=== PATIENT | male | born 1960 | race Caucasian/White ===

== ENCOUNTER 2018-04-11 08:19 | Emergency (ER) | payer MEDICAID ==
--- NOTE | 2018-04-11 08:46 | Emergency Department Record ---
History of Present Illness - General Chief Complaint: Cough Stated Complaint: STORM,COUGH,H/A Time Seen by Provider: 04/11/18 08:37 Source: Patient Mode of Arrival: Ambulatory Limitations: No limitations - History of Present Illness Initial Comments: The patient is here due to a 4 day hx of cough, congestion, frontal VIEYRA, mild ST and body aches. He denies any sputum production, fever, chills, or vomiting. The patient does have a hx of COPD and was around his grandchildren who were ill recently. MD Complaint: Cough, Nasal congestion, Rhinorrhea, Sore throat Onset/Timin -: Days(s) - Related Data Home Medications Medication Instructions Recorded Confirmed Last Taken Aspirin 81 mg PO DAILY 04/11/18 04/11/18 Unknown Cetirizine HCl [All Day Allergy 10 mg PO DAILY 04/11/18 04/11/18 Unknown Relief] Cholecalciferol (Vitamin D3) 2,000 unit PO DAILY 04/11/18 04/11/18 Unknown [Vitamin D3] Duloxetine HCl [Cymbalta] 60 mg PO DAILY 04/11/18 04/11/18 Unknown Tamsulosin HCl [Flomax] 0.4 mg PO DAILY 04/11/18 04/11/18 Unknown Varenicline Tartrate [Chantix] 1 mg PO DAILY 04/11/18 04/11/18 Unknown Allergies Allergy/AdvReac Type Severity Reaction Status Date / Time Penicillins Allergy HIVES Verified 04/11/18 09:14 Travel Screening - Travel/Exposure Within Last 30 Days Have you traveled within the last 30 days?: No Review of Systems Constitutional: Reports: Chills, Malaise. Denies: Fever Eyes: Denies: Eye discharge ENT: Reports: Congestion Respiratory: Reports: Cough. Denies: Dyspnea Cardiovascular: Denies: Arrhythmia Endocrine: Denies: Fatigue Gastrointestinal: Denies: Nausea Genitourinary: Denies: Dysuria Musculoskeletal: Denies: Arthralgia Skin: Denies: Bruising Past Medical History - SOCIAL HISTORY Smoking Status: Former smoker Alcohol Use: Occasional - RESPIRATORY Hx Respiratory Disorders: Yes Hx COPD: Yes - CARDIOVASCULAR Hx Cardio Disorders: Yes Comment:: AAA - NEURO Hx Neuro Disorders: No - GI Hx GI Disorders: No - Hx Genitourinary Disorders: Yes Hx Bladder Problem: Yes (Self Caths) Hx Prostate Problems: Yes (BPH) - ENDOCRINE Hx Endocrine Disorders: No - MUSCULOSKELETAL Hx Musculoskeletal Disorders: No - PSYCH Hx Psych Problems: No - HEMATOLOGY/ONCOLOGY Hx Hematology/Oncology Disorders: No Family Medical History Any Significant Family History?: Yes Hx Diabetes: Father Hx Heart Disease: Father Physical Exam - General General Appearance: Alert, Oriented x3, Cooperative, No acute distress - Head Head exam: Atraumatic, Normocephalic, Normal inspection - Eye Eye exam: Normal appearance, PERRL, EOMI - ENT ENT exam: TM's normal bilaterally Nasal Exam: Normal inspection. negative: Active bleeding, Discharge, Sinus tenderness Throat exam: Tonsillar erythema. negative: Normal inspection, Tonsillomegaly, Tonsillar exudate - Neck Neck exam: Normal inspection, Full ROM. negative: Lymphadenopathy, Tenderness - Respiratory Respiratory exam: Normal lung sounds bilaterally. negative: Respiratory distress - Cardiovascular Cardiovascular Exam: Regular rate, Normal rhythm, Normal heart sounds - GI/Abdominal GI/Abdominal exam: Soft, Normal bowel sounds. negative: Tenderness - Extremities Extremities exam: Normal inspection, Full ROM, Normal capillary refill. negative: Tenderness - Neurological Neurological exam: Alert, Normal gait. negative: Abnormal gait, Motor sensory deficit Course Vital Signs 04/11/18 08:23 Temperature 97.2 F L Pulse Rate 61 Respiratory 20 Rate Blood Pressure 133/79 Pulse Ox 98 - Reevaluation(s) Reevaluation #1: The patient is doing well and I did discuss the neg lab tests and neg CXR. I also did discuss the mildly elevated Cr with the patient and he did state he only has one kidney so due to the fact we have no old records on him I did recommend further evaluation this next week with his PCP for it. 04/11/18 10:15 Medical Decision Making - Data Complexity MDM Data: Labs Ordered and/or Reviewed, X-Ray Ordered and/or Reviewed - Lab Data Result diagrams: 04/11/18 08:50 04/11/18 08:50 - Radiology Data Radiology results: Report reviewed (CXR; Neg.) Disposition Disposition: Discharge Clinical Impression: URI, acute Disposition: Home, Self-Care Condition: (2) Stable Instructions: Cold Symptoms (ED) Additional Instructions: Please continue your OTC cough and cold medicines and use Tylenol if needed. Please see your family doctor this week for recheck and to repeat your kidney function tests. Return to the ER for any worsening symptoms. Forms: Patient Portal Access Time of Disposition: 10:17 Quality - Quality Measures Quality Measures: N/A - Blood Pressure Screening View Details: Yes Does Patient Have Any of the Following: No Blood Pressure Classification: Pre-Hypertensive BP Reading Systolic Measurement: 133 Diastolic Measurement: 79 Screening for High Blood Pressure: < Pre-Hypertensive BP, F/U Documented > [ [id number]] Pre-Hypertensive Follow-up Interventions: Referral to alternative/primary care provider.
[2018-04-11 08:59] LABS: BASO % 0.6 % (0-6); EOS % 2.2 % (0-6); GRAN % 65.1 % (47-80); HEMATOCRIT 49.1 % (42.0-52.0); HEMOGLOBIN 16.3 gm/dl (14.0-18.0); LYMPH % 19.4 % (16-45); MEAN CELL VOLUME 88.2 fl (81-97); MEAN CORPUSCULAR HEMOGLOBIN 29.3 pg (27-33); MEAN CORPUSCULAR HGB CONC 33.2 g/dl (32-36); MEAN PLATELET VOLUME 9.1 fl (7.4-10.4); MONO % 12.7 % (0-9); PLATELET COUNT 262 K/uL (130-400); RED BLOOD COUNT 5.57 M/uL (4.40-5.70); RED CELL DISTRIBUTION WIDTH 14.1 % (11.5-14.5); WHITE BLOOD COUNT W/O DIFF 11.2 K/uL (4.2-12.2)
[2018-04-11 09:16] LABS: INFLUENZA A NEGATIVE (NEGATIVE); INFLUENZA B NEGATIVE (NEGATIVE)
[2018-04-11 09:29] LABS: CREATININE 1.5 mg/dL (0.7-1.2)
[2018-04-11 09:35] LABS: C-REACTIVE PROTEIN 0.47 mg/dL (<0.5)
--- NOTE | 2018-04-12 18:36 | RADIOLOGY REPORT ---
EXAM: CHEST 2 VIEWS HISTORY: COUGH AND COLD FOR FIVE DAYS. TECHNIQUE: Two views of the chest. COMPARISON: None. FINDINGS: Cardiac silhouette within normal size limits. Mild tortuosity of the thoracic aorta. Pulmonary vasculature is nondilated. No focal pulmonary consolidation. No pleural effusion or pneumothorax. IMPRESSION: NO ACUTE LUNG FINDINGS. JOB NUMBER: [id number] MTDD
== END 2018-04-11 10:24 | disposition home or self-care (01) ==
LOC: ER 08:19
DX: J06.9 Acute upper respiratory infection, unspecified (principal); R05 Cough; R51 Headache; J02.9 Acute pharyngitis, unspecified; I71.4 Abdominal aortic aneurysm, without rupture; R79.89 Other specified abnormal findings of blood chemistry; Z87.891 Personal history of nicotine dependence
CPT/HCPCS: 71046; 80048; 84145; 85025; 86140; 87400; 99283; 99284

== ENCOUNTER 2018-10-16 17:44 | Observation (INO) | payer BC, MEDICAID ==
--- NOTE | 2018-10-16 18:01 | Emergency Department Record ---
History of Present Illness <Jewel Lucas - Last Filed: 10/16/18 17:50> - General Source: Patient Mode of Arrival: EMS Limitations: No limitations - History of Present Illness Initial Comments: 58 yo male presents to ED for evaluation of an injury to the head following fall into a picnic table. Patient's SO report that the patient was smoking marijuana this evening when he began to feel ill, thought he was going to vomit, and fell over face first into a picnic table outdoors. Patient denies LOC, denies use a nticoagulation medications. Patient denies pain to the head/neck, denies numbness, tingling, or extremity weakness on examination. Patient is s/p AAA repair in May of this year. SO reports that the patient's beta-marilyn was increased 2-3 weeks as well for elevated blood pressure. MD Complaint: Fall Onset/Timin -: Minutes(s) Fall From: Standing When Fall Occurred: Just prior to arrival Fall Witnessed: Yes, by family Place Fall Occurred: Home Loss of Consciousness: None Prolonged Down Time?: No Symptoms Prior to Fall: Other (Nausea) Context: Other (marijauna use) Associated Symptoms: Denies - [place] Coma Scale Eye Response: (4) Open spontaneously Motor Response: (6) Obeys commands Verbal Response: (5) Oriented [place] Total: 15 <MARIUM LUNSFORD - Last Filed: 10/16/18 22:12> - General Chief Complaint: Fall Injury Stated Complaint: FALL Time Seen by Provider: 10/16/18 17:50 - Related Data Home Medications Medication Instructions Recorded Confirmed Last Taken Atorvastatin Calcium 40 mg PO DAILY 10/16/18 10/16/18 1 Day Ago ~10/15/18 Gabapentin [Neurontin] 300 mg PO TID 10/16/18 10/16/18 1 Day Ago ~10/15/18 Magnesium Oxide 400 mg PO BID 10/16/18 10/16/18 1 Day Ago ~10/15/18 Metoprolol Tartrate 25 mg PO BID 10/16/18 10/16/18 1 Day Ago ~10/15/18 Oxycodone HCl/Acetaminophen 1 tab PO Q6H PRN 10/16/18 10/16/18 1 Day Ago [Oxycodone/Acetaminophen 5mg/325mg] ~10/15/18 Trazodone HCl 50 mg PO QHS 10/16/18 10/16/18 1 Day Ago ~10/15/18 Venlafaxine HCl [Venlafaxine HCl 37.5 mg PO DAILY 10/16/18 10/16/18 1 Day Ago ER] ~10/15/18 Allergies Allergy/AdvReac Type Severity Reaction Status Date / Time Penicillins Allergy HIVES Verified 10/16/18 17:58 Sulfa (Sulfonamide Allergy VOMITING Verified 10/16/18 17:58 Antibiotics) Review of Systems Constitutional: Denies: Chills, Fever, Malaise, Night sweats Eyes: Denies: Eye discharge, Eye pain ENT: Denies: Congestion, Ear pain, Epistaxis Respiratory: Denies: Cough, Dyspnea Cardiovascular: Denies: Chest pain, Dyspnea on exertion Endocrine: Denies: Fatigue, Heat or cold intolerance Gastrointestinal: Reports: Nausea. Denies: Abdominal pain, Vomiting Genitourinary: Denies: Incontinence, Retention Musculoskeletal: Denies: Arthralgia, Back pain Skin: Reports: Other (Forehead laceration). Denies: Bruising, Change in color Neurological: Denies: Numbness, Paresthesias, Tingling, Tremors Psychiatric: Denies: Anxiety, Auditory hallucinations <MARIUM LUNSFORD - Last Filed: 10/16/18 22:12> Past Medical History - SOCIAL HISTORY Smoking Status: Former smoker - RESPIRATORY Hx Respiratory Disorders: Yes Hx COPD: Yes - CARDIOVASCULAR Hx Cardio Disorders: Yes Comment:: AAA - NEURO Hx Neuro Disorders: No - GI Hx GI Disorders: No - Hx Genitourinary Disorders: Yes Hx Bladder Problem: Yes (Self Caths) Hx Prostate Problems: Yes (BPH) - ENDOCRINE Hx Endocrine Disorders: No - MUSCULOSKELETAL Hx Musculoskeletal Disorders: No - PSYCH Hx Psych Problems: No - HEMATOLOGY/ONCOLOGY Hx Hematology/Oncology Disorders: No <Jewel Lucas - Last Filed: 10/16/18 17:50> Family Medical History Hx Diabetes: Father Hx Heart Disease: Father <Jewel Lucas - Last Filed: 10/16/18 17:50> Physical Exam - General General Appearance: Alert, Oriented x3, Cooperative, Mild distress Limitations: No limitations - Head Head exam: Other (3.5 cm linear forehead laceration in the midlind perpendicular to estuardo's lines) Head exam detail: Abrasion, Laceration. negative: Diaz's sign, General tenderness, Hematoma - Eye Eye exam: Normal appearance. negative: Conjunctival injection, Periorbital swelling, Periorbital tenderness, Scleral icterus - ENT Ear exam: negative: Auricular hematoma, Auricular trauma Nasal Exam: negative: Active bleeding, Discharge, Dried blood, Foreign body Mouth exam: negative: Drooling, Laceration, Muffled voice, Tongue elevation - Neck Neck exam: Normal inspection. negative: Meningismus, Tenderness - Respiratory Respiratory exam: Normal lung sounds bilaterally. negative: Respiratory distress, Rhonchi, Stridor, Wheezes - Cardiovascular Cardiovascular Exam: Normal rhythm, Normal heart sounds, Bradycardia - GI/Abdominal GI/Abdominal exam: Soft, Other (Well-healed midline scar present in the midline). negative: Rebound, Rigid, Tenderness - Rectal Rectal exam: Deferred - exam: Deferred - Extremities Extremities exam: Normal inspection. negative: Pedal edema, Tenderness - Back Back exam: Denies: CVA tenderness (R), CVA tenderness (L) - Neurological Neurological exam: Alert, Normal gait, Oriented X3 - Psychiatric Psychiatric exam: Normal affect, Normal mood - Skin Skin exam: Normal color. negative: Abrasion Type of lesion: negative: abrasion <MARIUM LUNSFORD - Last Filed: 10/16/18 22:12> Course Vital Signs 10/16/18 17:45 Pulse Rate 48 L Respiratory 18 Rate Blood Pressure 89/68 Pulse Ox 98 - Reevaluation(s) Reevaluation #1: 10/16/18 18:50 EKG: Sinus Bradycardia 47 LAD, normal intervals No acute ST-T wave changes Laboratory studies were reviewed and are grossly unremarkable for an acute process except for the following: WBC 14.9 Hgb 12.4 BUN 27 Creatinine 2.0 (baseline 1.5) CT Brain: No acute intracranial process CT Cervical Spine: No acute fracture or mal-alignment Procedure Note: 3.5 cm laceration to the forehead, bleeding controlled. Wound was cleaned and prepped in sterile fashion, no residual FB identified on examination. Wound was anesthetized with 2.0 mL of 1% Lidocaine with epinephrine with good anesthesia, and the laceration was repaired with 4-0 Prolene (#8) sutures in interrupted fashion. Patient tolerated the procedure well without complications. IVFs are infusing, will admit for symptomatic bradycardia likely secondary to increased beta marilyn dosage 3 weeks ago. Reevaluation #2: 10/16/18 19:02 Case was discussed with Dr. Logan, will accept admission at this time. <MARIUM LUNSFORD - Last Filed: 10/16/18 22:12> Medical Decision Making - Lab Data Result diagrams: 10/16/18 18:17 10/16/18 18:17 <MARIUM LUNSFORD - Last Filed: 10/16/18 22:12> Disposition <Jewel Lucas A - Last Filed: 10/16/18 17:50> Disposition: Admit Decision to Admit: Admit from ER Decision to Admit Date: 10/16/18 Decision to Admit Time: 19:03 Time of Disposition: 18:54 <MARIUM LUNSFORD - Last Filed: 10/16/18 22:12> Clinical Impression: Symptomatic bradycardia, KEE (acute kidney injury) Forehead laceration Qualifiers: Encounter type: initial encounter Qualified Code(s): S01.81XA - Laceration without foreign body of other part of head, initial encounter Fall Qualifiers: Encounter type: initial encounter Qualified Code(s): W19.XXXA - Unspecified fall, initial encounter Disposition: Still a Patient at [facility] Condition: (2) Stable Quality - Blood Pressure Screening Does Patient Have Any of the Following: No <Jewel Lucas - Last Filed: 10/16/18 17:50> - Quality Measures Quality Measures: N/A - Blood Pressure Screening Does Patient Have Any of the Following: Active Dx of HTN Blood Pressure Classification: Normal BP Reading Systolic Measurement: 89 Diastolic Measurement: 68 Screening for High Blood Pressure: Patient Exclusion, Hx of HTN [G9744] <MARIUM LUNSFORD - Last Filed: 10/16/18 22:12>
[2018-10-16 18:28] LABS: ABSOLUTE NEUTROPHIL COUNT 11.94; HEMATOCRIT 40.5 % (42.0-52.0); HEMOGLOBIN 12.4 gm/dl (14.0-18.0); MEAN CORPUSCULAR HGB CONC 30.6 g/dl (32-36); MEAN PLATELET VOLUME 9.1 fl (7.4-10.4); PLATELET COUNT 350 K/uL (130-400); RED BLOOD COUNT 5.19 M/uL (4.40-5.70); RED CELL DISTRIBUTION WIDTH 16.6 % (11.5-14.5); WHITE BLOOD COUNT W/O DIFF 14.9 K/uL (4.2-12.2)
[2018-10-16 18:31] LABS: MEAN CORPUSCULAR HEMOGLOBIN 23.8 pg (27-33)
[2018-10-16 18:37] LABS: PLATELET ESTIMATE NORMAL (NORMAL)
[2018-10-16 18:39] LABS: INR 1.1; PARTIAL THROMBOPLASTIN TIME 23.6 SECONDS (24.5-39.1)
[2018-10-16] MEDS ORDERED: 0.9 % SODIUM CHLORIDE 1000ML 1,000 ML IV SCH (19:00)
[2018-10-16] MEDS ORDERED: 0.9 % SODIUM CHLORIDE 1000ML 1,000 ML IV PRN (20:55)
[2018-10-16] MEDS ORDERED: OXYCODONE HCL/APAP 5MG/325MG TABLET PO PRN (20:55)
[2018-10-16] MEDS ORDERED: TRAZODONE 50 MG TABLET PO SCH (22:00)
[2018-10-17] MEDS: GABAPENTIN 300 MG CAPSULE PO SCH ×2 (01:15→09:35)
[2018-10-17 06:30] LABS: URINE APPEARANCE SL CLOUDY; URINE BILIRUBIN NEGATIVE (NEGATIVE); URINE BLOOD SMALL (NEGATIVE); URINE COLOR YELLOW; URINE GLUCOSE (UA) NEGATIVE (NEGATIVE); URINE KETONE NEGATIVE (NEGATIVE); URINE LEUKOCYTE ESTERASE LARGE (NEGATIVE); URINE NITRITE NEGATIVE (NEGATIVE); URINE PROTEIN TRACE (NEGATIVE); URINE UROBILINOGEN 0.2 E.U./dL (0.20 - 1.00)
[2018-10-17 06:34] LABS: URINE BACTERIA 1+; URINE EPITHELIAL CELLS 0 - 2 (FEW); URINE WBC 21 - 35 (0-2/hpf)
[2018-10-17 08:20] LABS: CREATININE 1.7 mg/dL (0.7-1.2)
--- NOTE | 2018-10-17 08:27 | History & Physical ---
History of Present Illness - Date of Service Date of Service for History & Physical: 10/17/18 - History of Present Illness Admitting Diagnosis: Symptomatic Bradycardia. KEE. Fall with forehead laceration. Marijuana ingestion History of Present Illness: Mr. Escobar is a 58 y/o male here after experiencing a fall injury yesterday. The patient says that he was at home and he tried some medical marijuana which he got from a family member. He says that he began to feel really 'mellow and lightheaded' after smoking it causing him to fall forward and hit his head. He say she has not smoked cannabis in about 30 years so it really hit him hard. His Linda who I spoke to on the phone also notes recent changes to his Metoprolol. She says that his primary care doctor has been changing his medication dose because his blood pressure was out of control. He has recently increased his dose of Metoprolol to 25mg twice daily. On arriving to [facility] ED the patient was noted to be bradycardic and hypotensive. He also had a laceration of the forehead requiring eight sutures. The patient is admitted for symptomatic bradycardia and acute on chronic kidney failure. ECG: sinus bradycardia, vent rate 47, no acute changes. BP 86/68, HR 48. RR 18, Sats 98% RA, T 97 CT head: negative for acute injury. Cervical spine: negative for acute injury/fracture. Travel Screening - Travel/Exposure Within Last 30 Days Have you traveled within the last 30 days?: No - Travel/Exposure Within Last Year Have you traveled outside the [place] in the last year?: No - Additonal Travel Details Have you been exposed to anyone with a communicable illness?: No - Travel Symptoms Symptom Screening: None Review of Systems Constitutional: Denies: Chills, Fever, Malaise, Night sweats Eyes: Denies: Eye discharge, Eye pain ENT: Denies: Congestion, Ear pain, Epistaxis Respiratory: Denies: Cough, Dyspnea Cardiovascular: Denies: Chest pain, Dyspnea on exertion Endocrine: Denies: Fatigue, Heat or cold intolerance Gastrointestinal: Reports: Nausea. Denies: Abdominal pain, Vomiting Genitourinary: Denies: Incontinence, Retention Musculoskeletal: Denies: Arthralgia, Back pain Skin: Reports: Other (Forehead laceration). Denies: Bruising, Change in color Neurological: Denies: Numbness, Paresthesias, Tingling, Tremors Psychiatric: Denies: Anxiety, Auditory hallucinations Past Medical History - SOCIAL HISTORY Smoking Status: Former smoker Alcohol Use: Rare Drug Use: Rare Drug Use Detail:: Marijuana - RESPIRATORY Hx Respiratory Disorders: Yes Hx COPD: Yes - CARDIOVASCULAR Hx Cardio Disorders: No Comment:: AAA - NEURO Hx Neuro Disorders: No - GI Hx GI Disorders: No - Hx Genitourinary Disorders: Yes Hx Bladder Problem: Yes (Self Caths) Hx Prostate Problems: Yes (BPH) - ENDOCRINE Hx Endocrine Disorders: No - MUSCULOSKELETAL Hx Musculoskeletal Disorders: No - PSYCH Hx Psych Problems: No - HEMATOLOGY/ONCOLOGY Hx Hematology/Oncology Disorders: No Family Medical History Any Significant Family History?: Yes Hx Diabetes: Father Hx Heart Disease: Father, Brother/Sister H&P Meds/Allergies - Allergies Allergies: Allergies Allergy/AdvReac Type Severity Reaction Status Date / Time Penicillins Allergy HIVES Verified 10/16/18 17:58 Sulfa (Sulfonamide Allergy VOMITING Verified 10/16/18 17:58 Antibiotics) - Home Medications Home Medications Medication Instructions Recorded Confirmed Last Taken Atorvastatin Calcium 40 mg PO DAILY 10/16/18 10/16/18 1 Day Ago ~10/15/18 Gabapentin [Neurontin] 300 mg PO TID 10/16/18 10/16/18 1 Day Ago ~10/15/18 Magnesium Oxide 400 mg PO BID 10/16/18 10/16/18 1 Day Ago ~10/15/18 Metoprolol Tartrate 25 mg PO BID 10/16/18 10/16/18 1 Day Ago ~10/15/18 Oxycodone HCl/Acetaminophen 1 tab PO Q6H PRN 10/16/18 10/16/18 1 Day Ago [Oxycodone/Acetaminophen 5mg/325mg] ~10/15/18 Trazodone HCl 50 mg PO QHS 10/16/18 10/16/18 1 Day Ago ~10/15/18 Venlafaxine HCl [Venlafaxine HCl 37.5 mg PO DAILY 10/16/18 10/16/18 1 Day Ago ER] ~10/15/18 - Active Medications Active Medications: Current Medications Aspirin (Aspirin Chewable) 81 mg PO DAILY [facility] Atorvastatin Calcium (Lipitor) 40 mg PO DAILY [facility] Gabapentin (Neurontin) 600 mg PO TID [facility] Last Admin: 10/17/18 01:15 Dose: Not Given Documented by: Sodium Chloride () 1,000 mls @ 0 mls/hr IV .Q0M JONY Sodium Chloride () 1,000 mls @ 100 mls/hr IV .Q10H PRN PRN Reason: LARGE VOLUME IV Last Admin: 10/16/18 21:09 Dose: 100 mls/hr Documented by: Oxycodone/Acetaminophen (Percocet 5-325 Mg Tablet) 1 udtab PO Q6H PRN PRN Reason: PAIN - MILD (1-4) Trazodone HCl (Desyrel) 50 mg PO QHS [facility] Last Admin: 10/17/18 01:15 Dose: Not Given Documented by: Venlafaxine HCl (Effexor Xr) 37.5 mg PO DAILY [facility] Physical Exam - Vital Signs Vital Signs: Vital Signs - Last 24 Hrs Temp Pulse Pulse Resp BP BP Pulse Ox 10/17/18 07:34 97.8 F 69 18 145/78 93 L 10/17/18 05:00 98.3 F 68 18 149/78 98 10/17/18 01:00 98.7 F 74 20 131/66 94 L 10/16/18 20:22 16 10/16/18 20:00 97.6 F 47 L 18 132/74 97 10/16/18 19:04 48 L 18 125/75 94 L 10/16/18 17:45 48 L 18 89/68 98 - General General Appearance: Alert, Oriented x3, Cooperative, Mild distress Limitations: No limitations - Head Head exam: Other (3.5 cm linear forehead laceration in the midlind perpendicular to estuardo's lines) Head exam detail: Abrasion, Laceration (over the right forehead). negative: Diaz's sign, General tenderness, Hematoma - Eye Eye exam: Normal appearance. negative: Conjunctival injection, Periorbital swelling, Periorbital tenderness, Scleral icterus - ENT Ear exam: negative: Auricular hematoma, Auricular trauma Nasal Exam: negative: Active bleeding, Discharge, Dried blood, Foreign body Mouth exam: negative: Drooling, Laceration, Muffled voice, Tongue elevation - Neck Neck exam: Normal inspection. negative: Meningismus, Tenderness - Respiratory Respiratory exam: Normal lung sounds bilaterally. negative: Respiratory distress, Rhonchi, Stridor, Wheezes - Cardiovascular Cardiovascular Exam: Regular rate, Normal rhythm, Normal heart sounds, Bradycardia Peripheral Pulses: 3+: Radial (R), Radial (L), Dorsalis Pedis (R), Dorsalis Pedis (L) - GI/Abdominal GI/Abdominal exam: Soft, Other (Well-healed midline scar present in the midline ). negative: Rebound, Rigid, Tenderness - Rectal Rectal exam: Deferred - exam: Deferred - Extremities Extremities exam: Normal inspection. negative: Pedal edema, Tenderness - Back Back exam: Denies: CVA tenderness (R), CVA tenderness (L) - Neurological Neurological exam: Alert, Normal gait, Oriented X3 - Psychiatric Psychiatric exam: Normal affect, Normal mood - Skin Skin exam: Normal color. negative: Abrasion Type of lesion: negative: abrasion Results - Labs Result Diagrams: 10/16/18 18:17 10/17/18 08:02 Labs Last 24 Hours: Laboratory Results - last 24 hr 10/16/18 10/16/18 10/16/18 18:17 18:17 18:17 WBC 14.9 H RBC 5.19 Hgb 12.4 L Hct 40.5 L MCV 78.0 L MCH 23.8 L MCHC 30.6 L RDW 16.6 H Plt Count 350 MPV 9.1 Neutrophils % 78.0 Band Neutrophils % 2.0 Eosinophils % Not Reportable Basophils % Not Reportable Absolute Neutrophils 11.94 Lymphocytes 13.0 L Monocytes 7.0 Platelet Estimate Normal RBC Morphology Normal PT 11.0 INR 1.1 APTT 23.6 L Sodium 143 Potassium 5.0 H Chloride 105 Carbon Dioxide 27.0 Anion Gap 11.0 BUN 27 H Creatinine 2.0 H Estimated GFR 36 Random Glucose 119 H Calcium 10.2 Troponin T Lipase 17 Urine Color Urine Appearance Urine pH Ur Specific Thurman Urine Protein Urine Glucose (UA) Urine Ketones Urine Blood Urine Nitrite Urine Bilirubin Urine Urobilinogen Ur Leukocyte Esterase Urine RBC Urine WBC Ur Epithelial Cells Urine Bacteria Ethyl Alcohol 10/16/18 10/16/18 10/17/18 18:17 18:17 06:20 WBC RBC Hgb Hct MCV MCH MCHC RDW Plt Count MPV Neutrophils % Band Neutrophils % Eosinophils % Basophils % Absolute Neutrophils Lymphocytes Monocytes Platelet Estimate RBC Morphology PT INR APTT Sodium Potassium Chloride Carbon Dioxide Anion Gap BUN Creatinine Estimated GFR Random Glucose Calcium Troponin T < 0.010 Lipase Urine Color Yellow Urine Appearance Sl cloudy Urine pH 6.0 Ur Specific Thurman 1.010 Urine Protein Trace H Urine Glucose (UA) Negative Urine Ketones Negative Urine Blood Small H Urine Nitrite Negative Urine Bilirubin Negative Urine Urobilinogen 0.2 Ur Leukocyte Esterase Large H Urine RBC 7 - 10 Urine WBC 21 - 35 Ur Epithelial Cells 0 - 2 Urine Bacteria 1+ Ethyl Alcohol 0.010 10/17/18 08:02 WBC RBC Hgb Hct MCV MCH MCHC RDW Plt Count MPV Neutrophils % Band Neutrophils % Eosinophils % Basophils % Absolute Neutrophils Lymphocytes Monocytes Platelet Estimate RBC Morphology PT INR APTT Sodium 142 Potassium 4.8 H Chloride 108 H Carbon Dioxide 23.0 Anion Gap 11.0 BUN 24 H Creatinine 1.7 H Estimated GFR 44 Random Glucose 124 H Calcium 9.2 Troponin T Lipase Urine Color Urine Appearance Urine pH Ur Specific Thurman Urine Protein Urine Glucose (UA) Urine Ketones Urine Blood Urine Nitrite Urine Bilirubin Urine Urobilinogen Ur Leukocyte Esterase Urine RBC Urine WBC Ur Epithelial Cells Urine Bacteria Ethyl Alcohol VTE H&P Assessment - Risk for VTE Risk for VTE: Yes Risk Level: High Risk Assessment Date: 10/17/18 Risk Assessment Time: 11:06 VTE Orders Placed or Will Be Placed: No VTE Reason for No Prophylaxis: Contraindicated (due to CKD,) Plan - Detailed Diagnosis and Plan (1) Symptomatic bradycardia Current Visit: Yes Status: Acute Base Code: R00.1 - BRADYCARDIA, UNSPECIFIED Comment: 10/17/18: - Likely 2/2 increase beta-marilyn dose. - ECG: sinus bradycardia w/o acute changes. - desk monitor HR 60-70s. - Continue to hold beta-marilyn until seen by PCP. (2) Fall Current Visit: Yes Status: Acute Qualifiers: Encounter type: initial encounter Qualified Code(s): W19.XXXA - Unspecified fall, initial encounter Base Code: W19.XXXA - UNSPECIFIED FALL, INITIAL ENCOUNTER Comment: 10/17/18: - 2/2 to symptomatic bradycardia. - CT head and spine negative for acute injury. (3) Forehead laceration Current Visit: Yes Status: Acute Qualifiers: Encounter type: initial encounter Qualified Code(s): S01.81XA - Laceration without foreign body of other part of head, initial encounter Base Code: S01.81XA - LACERATION W/O FOREIGN BODY OF OTH PART OF HEAD, INIT ENCNTR Comment: 10/17/18: - Laceration of the right forehead 2/2 to fall. - Recieved 8 sutures in the ED. To be removed by PCP in 7 days. (4) Chronic kidney disease Current Visit: Yes Status: Acute Base Code: N18.9 - CHRONIC KIDNEY DISEASE, UNSPECIFIED Comment: 10/17/18 - KEE on CKD on admission 2/2 recent diuretic use. 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 - BUN/Cr: 27/2 --> 24/1.7, after IVF fluid challenge. - Avoid nephrotoxic agents. (5) Urinary retention Current Visit: Yes Status: Acute Base Code: R33.9 - RETENTION OF URINE, UNSPECIFIED Comment: 10/17/18: - 2/2 to neurogenic bladder. - Patient straight caths BID. (6) Hx of abdominal aortic aneurysm Current Visit: Yes Status: Acute Base Code: Z86.79 - PERSONAL HISTORY OF OTHER DISEASES OF THE CIRCULATORY SYSTEM Comment: 10/17/18: - S/P aortic repair May 2018. (7) DVT prophylaxis Current Visit: Yes Status: Acute Base Code: Z29.9 - ENCOUNTER FOR PROPHYLACTIC MEASURES, UNSPECIFIED Comment: 10/17/18: - High risk of DVT. hold Lovenox due to poor renal function. S/P nephrectomy. (8) Full code status Current Visit: Yes Status: Acute Base Code: Z78.9 - OTHER SPECIFIED HEALTH STATUS Comment: 10/17/18: - Full code this admission.
[2018-10-17] MEDS ORDERED: VENLAFAXINE ER 37.5 MG CAPSULE PO SCH (10:00)
[2018-10-17] MEDS ORDERED: ASPIRIN 81 MG CHEWABLE TABLET PO SCH (10:00)
[2018-10-17] MEDS ORDERED: ATORVASTATIN 20 MG TABLET PO SCH (10:00)
--- NOTE | 2018-10-17 11:18 | Discharge Summary ---
Providers Discharge Summary Date: 10/17/18 Date of admission: 10/16/18 19:42 Attending physician: ARANZA ZABALA Physical Exam - Vital Signs Vital Signs: Vital Signs - Last 24 Hrs Temp Pulse Pulse Resp BP BP Pulse Ox 10/17/18 07:34 97.8 F 69 18 145/78 93 L 10/17/18 05:00 98.3 F 68 18 149/78 98 10/17/18 01:00 98.7 F 74 20 131/66 94 L 10/16/18 20:22 16 10/16/18 20:00 97.6 F 47 L 18 132/74 97 10/16/18 19:04 48 L 18 125/75 94 L 10/16/18 17:45 48 L 18 89/68 98 - General General Appearance: Alert, Oriented x3, Cooperative, Mild distress Limitations: No limitations - Head Head exam: Other (3.5 cm linear forehead laceration in the midlind perpendicular to estuardo's lines) Head exam detail: Abrasion, Laceration (over the right forehead). negative: Diaz's sign, General tenderness, Hematoma - Eye Eye exam: Normal appearance. negative: Conjunctival injection, Periorbital swelling, Periorbital tenderness, Scleral icterus - ENT Ear exam: negative: Auricular hematoma, Auricular trauma Nasal Exam: negative: Active bleeding, Discharge, Dried blood, Foreign body Mouth exam: negative: Drooling, Laceration, Muffled voice, Tongue elevation - Neck Neck exam: Normal inspection. negative: Meningismus, Tenderness - Respiratory Respiratory exam: Normal lung sounds bilaterally. negative: Respiratory distress, Rhonchi, Stridor, Wheezes - Cardiovascular Cardiovascular Exam: Regular rate, Normal rhythm, Normal heart sounds, Bradycardia Peripheral Pulses: 3+: Radial (R), Radial (L), Dorsalis Pedis (R), Dorsalis Pedis (L) - GI/Abdominal GI/Abdominal exam: Soft, Other (Well-healed midline scar present in the midline). negative: Rebound, Rigid, Tenderness - Rectal Rectal exam: Deferred - exam: Deferred - Extremities Extremities exam: Normal inspection. negative: Pedal edema, Tenderness - Back Back exam: Denies: CVA tenderness (R), CVA tenderness (L) - Neurological Neurological exam: Alert, Normal gait, Oriented X3 - Psychiatric Psychiatric exam: Normal affect, Normal mood - Skin Skin exam: Normal color. negative: Abrasion Type of lesion: negative: abrasion Hospitalization - Hospitalization Admission Diagnosis: Symptomatic Bradycardia. KEE. Fall with forehead laceration. Marijuana ingestion - Problem List/Discharge Diagnosis (1) Symptomatic bradycardia Status: Acute Base Code: R00.1 - BRADYCARDIA, UNSPECIFIED Comment: 10/17/18: - Likely 2/2 increase beta-marilyn dose. - ECG: sinus bradycardia w/o acute changes. - equipment monitor phototypesetting HR 60-70s. - Continue to hold beta-marilyn until seen by PCP. (2) Fall Status: Acute Discharge Diagnosis: Encounter type: initial encounter Qualified Code(s): W19.XXXA - Unspecified fall, initial encounter Base Code: W19.XXXA - UNSPECIFIED FALL, INITIAL ENCOUNTER Comment: 10/17/18: - 2/2 to symptomatic bradycardia. - CT head and spine negative for acute injury. (3) Forehead laceration Status: Acute Discharge Diagnosis: Encounter type: initial encounter Qualified Code(s): S01.81XA - Laceration without foreign body of other part of head, initial encounter Base Code: S01.81XA - LACERATION W/O FOREIGN BODY OF OTH PART OF HEAD, INIT ENCNTR Comment: 10/17/18: - Laceration of the right forehead 2/2 to fall. - Recieved 8 sutures in the ED. To be removed by PCP in 7 days. (4) Chronic kidney disease Status: Acute Base Code: N18.9 - CHRONIC KIDNEY DISEASE, UNSPECIFIED Comment: 10/17/18 - KEE on CKD on admission 2/2 recent diuretic use. 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 - BUN/Cr: 27/2 --> 24/1.7, after IVF fluid challenge. - Avoid nephrotoxic agents. (5) Urinary retention Status: Acute Base Code: R33.9 - RETENTION OF URINE, UNSPECIFIED Comment: 10/17/18: - 2/2 to neurogenic bladder. - Patient straight caths BID. (6) Hx of abdominal aortic aneurysm Status: Acute Base Code: Z86.79 - PERSONAL HISTORY OF OTHER DISEASES OF THE CIRCULATORY SYSTEM Comment: 10/17/18: - S/P aortic repair May 2018. (7) DVT prophylaxis Status: Acute Base Code: Z29.9 - ENCOUNTER FOR PROPHYLACTIC MEASURES, UNSPECIFIED Comment: 10/17/18: - High risk of DVT. hold Lovenox due to poor renal function. S/P nephrectomy. (8) Full code status Status: Acute Base Code: Z78.9 - OTHER SPECIFIED HEALTH STATUS Comment: 10/17/18: - Full code this admission. - Hospitalization Course Disposition: Home, Self-Care Hospital Course: Mr. Escobar is a 58 y/o male here after experiencing a fall injury yesterday. The patient says that he was at home and he tried some medical marijuana which he got from a family member. He says that he began to feel really 'mellow and lightheaded' after smoking it causing him to fall forward and hit his head. He say she has not smoked cannabis in about 30 years so it really hit him hard. His Linda who I spoke to on the phone also notes recent changes to his Metoprolol. She says that his primary care doctor has been changing his medication dose because his blood pressure was out of control. He has recently increased his dose of Metoprolol to 25mg twice daily. On arriving to [facility] ED the patient was noted to be bradycardic and hypotensive. He also had a laceration of the forehead requiring eight sutures. The patient is admitted for symptomatic bradycardia and acute on chronic kidney failure. ECG: sinus bradycardia, vent rate 47, no acute changes. BP 86/68, HR 48. RR 18, Sats 98% RA, T 97 CT head: negative for acute injury. Cervical spine: negative for acute injury/fracture. Assessment at discharge: Patient symptomatic, denies dizziness or chest pain. equipment monitor phototypesetting shows heart rate between 65-70. The patient is stable for discharge. Procedures: Imaging and X-Rays 10/16/18 17:51 CERVICAL SPINE WO CONTRAST [CT] Stat HEAD WO CONTRAST [CT] Stat Cardiology Procedures 10/16/18 17:51 Train Brake Operator NOW EKG NOW 10/16/18 20:55 Train Brake Operator .Continuous Abnormal Labs: Abnormal Lab Results 10/16/18 10/16/18 10/16/18 Range/Units 18:17 18:17 18:17 WBC 14.9 H (4.2-12.2) K/uL Hgb 12.4 L (14.0-18.0) gm/dl Hct 40.5 L (42.0-52.0) % MCV 78.0 L (81-97) fl MCH 23.8 L (27-33) pg MCHC 30.6 L (32-36) g/dl RDW 16.6 H (11.5-14.5) % Lymphocytes 13.0 L (16-45) % APTT 23.6 L (24.5-39.1) SECONDS Potassium 5.0 H (3.4-4.5) mmol/L Chloride (98-107) mmol/L BUN 27 H (8-23) mg/dL Creatinine 2.0 H (0.7-1.2) mg/dL Random Glucose 119 H (74-109) mg/dL Urine Protein (NEGATIVE) Urine Blood (NEGATIVE) Ur Leukocyte Esterase (NEGATIVE) 10/17/18 10/17/18 Range/Units 06:20 08:02 WBC (4.2-12.2) K/uL Hgb (14.0-18.0) gm/dl Hct (42.0-52.0) % MCV (81-97) fl MCH (27-33) pg MCHC (32-36) g/dl RDW (11.5-14.5) % Lymphocytes (16-45) % APTT (24.5-39.1) SECONDS Potassium 4.8 H (3.4-4.5) mmol/L Chloride 108 H (98-107) mmol/L BUN 24 H (8-23) mg/dL Creatinine 1.7 H (0.7-1.2) mg/dL Random Glucose 124 H (74-109) mg/dL Urine Protein Trace H (NEGATIVE) Urine Blood Small H (NEGATIVE) Ur Leukocyte Esterase Large H (NEGATIVE) Condition at Discharge: (1) Good Discharge Medications - Discharge Medications Home Medications: Ambulatory Orders Aspirin 81 mg PO DAILY 04/11/18 [Last Taken 1 Day Ago ~10/15/18] Cetirizine HCl [All Day Allergy Relief] 10 mg PO DAILY 04/11/18 [Last Taken 1 Day Ago ~10/15/18] Cholecalciferol (Vitamin D3) [Vitamin D3] 2,000 unit PO DAILY 04/11/18 [Last Taken 1 Day Ago ~10/15/18] Tamsulosin HCl [Flomax] 0.4 mg PO DAILY 04/11/18 [Last Taken 1 Day Ago ~10/15/18] Atorvastatin Calcium 40 mg PO DAILY 10/16/18 [Last Taken 1 Day Ago ~10/15/18] Gabapentin [Neurontin] 300 mg PO TID 10/16/18 [Last Taken 1 Day Ago ~10/15/18] Magnesium Oxide 400 mg PO BID 10/16/18 [Last Taken 1 Day Ago ~10/15/18] Oxycodone HCl/Acetaminophen [Oxycodone/Acetaminophen 5mg/325mg] 1 tab PO Q6H PRN 10/16/18 [Last Taken 1 Day Ago ~10/15/18] Trazodone HCl 50 mg PO QHS 10/16/18 [Last Taken 1 Day Ago ~10/15/18] Venlafaxine HCl [Venlafaxine HCl ER] 37.5 mg PO DAILY 10/16/18 [Last Taken 1 Day Ago ~10/15/18] Discharge Plan - Discharge Instructions Diet at Discharge: Regular Diet Instructions: Stitches Removal (DC) Additional Instructions: Please resume taking your Metoprolol but decrease dose to only once daily until seen by your PCP this Friday. It is important to not take any alcohol or cannabis with your medications as these my enhance or decrease the effect of you r prescribed medication. Have sutures removed in 9 days, may be done by PCP or return to here to Emergency room. Keep sutures clean/dry-no swimming. Put small amount triple antibiotic ointment to area once daily. See pre-printed discharge instructions given. Quality Measures - Quality Measures Quality Measures: Documentation of Current Medications in Medical Record, Screening for High Blood Pressure and F/U Documented - Current Medications Quality Measure: Measure #130: Documentation of Current Medications Documentation of Current Medications: <Current Medications Documented/Reviewed> [[id number]] - Blood Pressure Screening Quality Measure: Screening for High Blood Pressure and Follow-Up Documented Does Patient Have Any of the Following: Active Dx of HTN Blood Pressure Classification: Normal BP Reading Systolic Measurement: 89 Diastolic Measurement: 68 Screening for High Blood Pressure: Patient Exclusion, Hx of HTN [G9744] - Elder Abuse Suspicion Index EASI Reference Information: Yin PENALOZA, Larisa C, Linda D, Reji Rubin.Development and validation of a tool to assist physicians identification of elder abuse: The Elder Abuse Suspicion Index (EASI ). Journal of Elder Abuse and Neglect, 2008; 20 (3): 276-300.
== END 2018-10-17 12:55 | disposition home or self-care (01) ==
LOC: ER 17:44 → MEDSURG 19:42
PROVIDERS: ADMIT Internal Medicine; ATTEND Internal Medicine
DX: R00.1 Bradycardia, unspecified (principal); T40.7X5A Adverse effect of cannabis (derivatives), initial encounter; N17.9 Acute kidney failure, unspecified; R33.9 Retention of urine, unspecified; Z96.0 Presence of urogenital implants; Z90.5 Acquired absence of kidney; N40.0 Benign prostatic hyperplasia without lower urinary tract symptoms; W19.XXXA Unspecified fall, initial encounter; Y93.9 Activity, unspecified; Z86.79 Personal history of other diseases of the circulatory system
CPT/HCPCS: 12013; 82310; 83690; 85730; 85610; 80048 ×2; 81001; 84484; 85027; 72125; 70450; 93005; 93010; G0378 ×2; G0480; 80320; 99220; 99285